=== PATIENT | male | born 1985 | race Caucasian/White ===

== ENCOUNTER 2016-12-11 08:10 | Emergency (ER) | payer OTHER, BC ==
[~2016-12-11] VITALS: Ht 180.3 cm; Wt 81.6 kg
[2016-12-11 08:15] VITALS: BP 116/72
[2016-12-11] MEDS ORDERED: KETOROLAC 60 MG/2 ML VIAL (J1885) IM ONE (09:00)
--- NOTE | 2016-12-11 09:17 | REP ---
Clinical: Trauma . Technique: AP, lateral, bilateral oblique, and coned-down views. Findings: Alignment and lordosis is maintained. The vertebral bodies including transverse process and spinous processes are intact and normal. There is no evidence for acute fracture / compression injury or subluxation. No evidence for spondylolysis or spondylolisthesis. No significant degenerative change is noted. Impression: Normal lumbosacral spine radiograph series. Signed by Rufino Gandhi MD 12/11/2016 09:08 A
[2016-12-11] MEDS ORDERED: IBUP80TA PO (09:21)
[2016-12-11] MEDS ORDERED: ROBA500T PO (09:21)
[2016-12-11] MEDS ORDERED: NORCOTAB PO (09:21)
== END 2016-12-11 09:41 | disposition home or self-care (01) ==
LOC: M ED 08:51
DX: S39.012A Strain of muscle, fascia and tendon of lower back, initial encounter (principal); X58.XXXA Exposure to other specified factors, initial encounter; Y92.099 Unspecified place in other non-institutional residence as the place of occurrence of the external cause; Y93.9 Activity, unspecified; Y99.9 Unspecified external cause status; F17.200 Nicotine dependence, unspecified, uncomplicated
CPT/HCPCS: 72110; 96372; 99282; J1885

== ENCOUNTER 2017-07-12 18:35 | Emergency (ER) | payer BC, OTHER ==
[2017-07-12] MEDS ORDERED: PENICILLIN V POTASSIUM 500 MG TAB PO (19:45)
== END 2017-07-12 19:55 | disposition home or self-care (01) ==
LOC: M ED 18:35
DX: J02.9 Acute pharyngitis, unspecified (principal); F17.200 Nicotine dependence, unspecified, uncomplicated
CPT/HCPCS: 99282

== ENCOUNTER 2017-08-01 17:26 | Emergency (ER) | payer BC ==
[2017-08-01] MEDS: AUGMENTIN 875 MG TAB PO (20:07)
== END 2017-08-01 21:57 | disposition home or self-care (01) ==
LOC: M ED 17:26
DX: J02.0 Streptococcal pharyngitis (principal); R05 Cough; F17.210 Nicotine dependence, cigarettes, uncomplicated
CPT/HCPCS: 87880

== ENCOUNTER 2017-12-16 17:53 | Emergency (ER) | payer BC ==
[2017-12-16] MEDS: PENICILLIN V POTASSIUM 500 MG TAB PO (18:24)
[2017-12-16] MEDS: NORCO 5/325MG TABLET (BULK FOR ED) PO (18:24)
== END 2017-12-16 18:27 | disposition home or self-care (01) ==
LOC: M ED 17:53
DX: K04.7 Periapical abscess without sinus (principal); F17.210 Nicotine dependence, cigarettes, uncomplicated
CPT/HCPCS: 99282

== ENCOUNTER 2018-03-25 23:41 | Emergency (ER) | payer BC ==
[2018-03-26] MEDS: IBUPROFEN 600 MG TAB PO (02:11)
[2018-03-26] MEDS: CYCLOBENZAPRINE 10 MG TAB PO (02:12)
== END 2018-03-26 02:27 | disposition home or self-care (01) ==
LOC: M ED 23:41
DX: M54.42 Lumbago with sciatica, left side (principal); M62.830 Muscle spasm of back; F17.210 Nicotine dependence, cigarettes, uncomplicated
CPT/HCPCS: 99283

== ENCOUNTER 2018-11-13 21:22 | Emergency (ER) | payer BC ==
[~2018-11-13] VITALS: Ht 180.3 cm; Wt 84.1 kg
[~2018-11-13 21:22] MED LIST: AUGM875T28 PO; CYCL10TA PO; HYDR-3715 PO; IBUP-1022 PO; IBUP80TA PO; PENI500T OR; PENI500T PO; ROBA500T PO; TYLE500T78 PO
[2018-11-13] MEDS ORDERED: traMADol 50 MG TAB (BULK 4 TAB ED) PO ONE (23:00)
[2018-11-13] MEDS ORDERED: PENICILLIN V POTASSIUM 500 MG TAB PO ONE (23:00)
[2018-11-13] MEDS ORDERED: TRAM50TA2 PO (23:01)
[2018-11-13] MEDS ORDERED: PENI500T PO (23:01)
[2018-11-13 23:12] VITALS: BP 128/64
== END 2018-11-13 23:13 | disposition home or self-care (01) ==
LOC: M ED 21:22
DX: K04.7 Periapical abscess without sinus (principal); K02.9 Dental caries, unspecified; K08.89 Other specified disorders of teeth and supporting structures

== ENCOUNTER → 2018-12-30 | Outpatient (CLI) | payer BC ==
[~2018-12-30] MED LIST changes: +TRAM50TA2 PO
[2018-12-30 07:30] LABS: BASO # 0.1 10^3/uL (0.0-0.2); BASO % 0.7 % (0.0-1.0); EOS # 0.3 10^3/uL (0.0-0.50); EOS % 3.5 % (0.0-3.0); HEMATOCRIT 45.8 % (42.0-52.0); HEMOGLOBIN 15.4 g/dl (13.5-17.5); LYMPH # 2.2 10^3/uL (1.5-4.5); LYMPH % 27.1 % (24.0-44.0); MEAN CORPUSCULAR HEMOGLOBIN 30.6 pg (27.0-33.0); MEAN CORPUSCULAR HGB CONC 33.6 g/dl (32.0-36.5); MEAN CORPUSCULAR VOLUME 91.1 fl (80.0-96.0); MONO # 0.9 10^3/uL (0.0-0.8); MONO % 10.4 % (0.0-5.0); NEUTROPHILS # 4.7 10^3/uL (1.8-7.7); NEUTROPHILS % 57.6 % (36.0-66.0); PLATELET COUNT, AUTOMATED 212 10^3/uL (150-450); RED BLOOD COUNT 5.03 10^6/uL (4.30-6.10); WHITE BLOOD COUNT 8.2 10^3/uL (4.0-10.0)
[2018-12-30 07:36] LABS: AMORPHOUS SEDIMENT SMALL (NEGATIVE); APPEARANCE, URINE HAZY (CLEAR); BACTERIA, URINE AUTO NEGATIVE (NEGATIVE); BILIRUBIN, URINE AUTO NEGATIVE (NEGATIVE); BLOOD, URINE BLOOD NEGATIVE (NEGATIVE); COLOR, URINE YELLOW (YELLOW); GLUCOSE, URINE (UA) AUTO NEGATIVE (NEGATIVE); KETONE, URINE AUTO NEGATIVE (NEGATIVE); LEUKOCYTE ESTERASE, URINE AUTO NEGATIVE (NEGATIVE); NITRITE, URINE AUTO NEGATIVE (NEGATIVE); PROTEIN, URINE AUTO NEGATIVE (NEGATIVE); RBC, URINE AUTO 0 /HPF (0-3); SQUAMOUS EPITHELIAL CELL UR AU 0 /HPF (0-6); UROBILINOGEN, URINE AUTO 0.2 mg/dL (0.0-2.0); WBC, URINE AUTO 0 /HPF (0-3)
[2018-12-30 07:46] LABS: HEMOGLOBIN A1c 5.6 %
[2018-12-30 08:00] LABS: ALBUMIN 3.7 GM/DL (3.2-5.2); ALT/SGPT 46 U/L (12-78); BILIRUBIN,TOTAL 0.2 MG/DL (0.2-1.0); BLOOD UREA NITROGEN 16 MG/DL (7-18); CALCIUM LEVEL 9.1 MG/DL (8.5-10.1); CARBON DIOXIDE LEVEL 33 MEQ/L (21-32); CHLORIDE LEVEL 106 MEQ/L (98-107); CHOLESTEROL LEVEL 152 MG/DL (<200); CHOLESTEROL RISK RATIO 2.923 (<5); CREATININE FOR GFR 1.22 MG/DL (0.70-1.30); FREE T4 0.81 NG/DL (0.76-1.46); GLOMERULAR FILTRATION RATE > 60.0 (>60); GLUCOSE, FASTING 95 MG/DL (70-100); HDL CHOLESTEROL 52 MG/DL (>40); LDL CHOLESTEROL 77 MG/DL (<100); NON-HDL-C 100 MG/DL; POTASSIUM SERUM 3.9 MEQ/L (3.5-5.1); SODIUM LEVEL 143 MEQ/L (136-145); TOTAL PROTEIN 6.5 GM/DL (6.4-8.2); TRIGLYCERIDES LEVEL 114 MG/DL (<150)
[2018-12-30 08:21] LABS: TOTAL 25(OH) VITAMIN D 21.3 NG/ML (30.0-100.0)
[2019-01-01 00:06] LABS: Lyme Disease IgG/IgM Antibodie <0.91 ISR (0.00-0.90); Lyme Disease IgM Ab Quantitati <0.80 index (0.00-0.79)
== END ==
LOC: M LAB 06:45
PROVIDERS: ATTEND Family Medicine
DX: Z13.228 Encounter for screening for other metabolic disorders (principal)

== ENCOUNTER 2019-03-30 18:10 | Emergency (ER) | payer OTHER, BC ==
[~2019-03-30] VITALS: Ht 180.3 cm; Wt 86.6 kg
[2019-03-30] MEDS ORDERED: LEVO50TA5 PO (18:16)
[2019-03-30] MEDS ORDERED: CHAN1PAK13 (18:16)
[2019-03-30] MEDS ORDERED: D3 H10002 PO (18:16)
[2019-03-30] MEDS ORDERED: VITA500045 (18:16)
[2019-03-30] MEDS ORDERED: KETOROLAC 60 MG/2 ML VIAL (J1885) IM ONE (19:30)
[2019-03-30] MEDS ORDERED: ACETAMINOPHEN 325 MG TAB PO ONE (19:30)
[2019-03-30] MEDS ORDERED: KETO10TAB PO (20:39)
[2019-03-30] MEDS ORDERED: CYCL10TA PO (20:39)
[2019-03-30] MEDS ORDERED: CYCLOBENZAPRINE 10 MG TAB PO ONE (20:45)
[2019-03-30] MEDS ORDERED: KETOROLAC TROMETHAMINE 10 MG TAB PO ONE (20:45)
[2019-03-30 20:52] VITALS: BP 120/77
== END 2019-03-30 20:55 | disposition home or self-care (01) ==
LOC: M ED 18:10
DX: S39.012A Strain of muscle, fascia and tendon of lower back, initial encounter (principal); X50.0XXA Overexertion from strenuous movement or load, initial encounter; Y92.59 Other trade areas as the place of occurrence of the external cause; Y99.0 Civilian activity done for income or pay; Y93.89 Activity, other specified; F17.210 Nicotine dependence, cigarettes, uncomplicated; M54.32 Sciatica, left side
CPT/HCPCS: 96372; 99283; J1885

== ENCOUNTER → 2019-06-10 | Outpatient (CLI) | payer BC ==
[~2019-06-10] MED LIST changes: +CHAN1PAK13; +D3 H10002 PO; +KETO10TAB PO; +LEVO50TA5 PO; +VITA500045
[2019-06-10 08:13] LABS: FREE T4 1.07 NG/DL (0.76-1.46); THYROID STIMULATING HORMONE 3.21 uIU/ML (0.358-3.740)
[2019-06-10 08:47] LABS: HEMOGLOBIN A1c 5.5 %
== END ==
LOC: M LAB 07:03
PROVIDERS: ATTEND Family Medicine
DX: R73.03 Prediabetes (principal)

== ENCOUNTER → 2019-07-25 | Outpatient (REF) | payer BC ==
[2019-07-25 11:14] LABS: SEMEN APPEARANCE OPAQUE (OPAQUE); SEMEN VISCOSITY LIQUID (LIQUID); SEMEN VOLUME 1.2 ml (2.0-5.0); SEMEN pH 8.5 (7.0-8.0); SPERM CONCENTRATION 148.8 M/ml (>=15.0); WBC CONCENTRATION <=1 M/ml (<=1 M/ml)
== END ==
LOC: M LAB REF 10:56
PROVIDERS: ATTEND Obstetrics & Gynecology Reproductive Endocrinology
DX: N46.9 Male infertility, unspecified (principal)

== ENCOUNTER → 2020-11-05 | Outpatient (REF) | payer BC ==
[~2020-11-05] MED LIST changes: +CYCL-707 PO; -CYCL10TA PO
[2020-11-05 17:13] LABS: BASO # 0.1 10^3/uL (0.0-0.2); BASO % 0.8 % (0.0-1.0); EOS # 0.2 10^3/uL (0.0-0.5); EOS % 2.1 % (0.0-3.0); HEMATOCRIT 48.8 % (42.0-52.0); HEMOGLOBIN 16.9 g/dl (13.5-17.5); LYMPH # 1.9 10^3/uL (1.5-5.0); LYMPH % 26.1 % (24.0-44.0); MEAN CORPUSCULAR HEMOGLOBIN 30.3 pg (27.0-33.0); MEAN CORPUSCULAR HGB CONC 34.6 g/dl (32.0-36.5); MEAN CORPUSCULAR VOLUME 87.6 fl (80.0-96.0); MONO # 0.8 10^3/uL (0.0-0.8); MONO % 10.7 % (2.0-8.0); NEUTROPHILS # 4.3 10^3/uL (1.5-8.5); NEUTROPHILS % 59.3 % (36.0-66.0); PLATELET COUNT, AUTOMATED 215 10^3/uL (150-450); RED BLOOD COUNT 5.57 10^6/uL (4.30-6.10); WHITE BLOOD COUNT 7.3 10^3/uL (4.0-10.0)
[2020-11-05 17:47] LABS: ALBUMIN 4.5 GM/DL (3.2-5.2); ALT/SGPT 145 U/L (12-78); BILIRUBIN,TOTAL 0.6 MG/DL (0.2-1.0); BLOOD UREA NITROGEN 17 MG/DL (7-18); CALCIUM LEVEL 9.1 MG/DL (8.5-10.1); CARBON DIOXIDE LEVEL 27 MEQ/L (21-32); CHLORIDE LEVEL 104 MEQ/L (98-107); CHOLESTEROL LEVEL 189 MG/DL (<200); CHOLESTEROL RISK RATIO 3.857 (<5); CREATININE FOR GFR 1.03 MG/DL (0.70-1.30); GLOMERULAR FILTRATION RATE > 60.0 (>60); GLUCOSE, FASTING 103 MG/DL (70-100); HDL CHOLESTEROL 49 MG/DL (>40); LDL CHOLESTEROL 109 MG/DL (<100); NON-HDL-C 140 MG/DL; POTASSIUM SERUM 4.5 MEQ/L (3.5-5.1); SODIUM LEVEL 139 MEQ/L (136-145); TOTAL PROTEIN 7.5 GM/DL (6.4-8.2); TRIGLYCERIDES LEVEL 153 MG/DL (<150)
[2020-11-05 17:48] LABS: TOTAL 25(OH) VITAMIN D 14.8 NG/ML (30.0-100.0)
[2020-11-05 17:49] LABS: THYROID PEROXIDASE ANTIBODY < 28.0 U/ML (<60.0)
[2020-11-05 18:10] LABS: HEMOGLOBIN A1c 5.4 %
[2020-11-05 18:24] LABS: MALB URINE SIEMENS 10.1 MG/L; MAU/CREAT RATIO 4.4 MCG/MG (0.0-30.0)
== END ==
LOC: M LAB REF 16:26
PROVIDERS: ATTEND Pediatrics
DX: E03.9 Hypothyroidism, unspecified (principal); R73.03 Prediabetes; E55.9 Vitamin D deficiency, unspecified

== ENCOUNTER → 2022-09-15 | Outpatient (REF) | payer BC ==
[2022-09-15 18:53] LABS: HEMOGLOBIN A1c 5.8 % (4.0-6.0)
[2022-09-15 19:04] LABS: ALBUMIN 4.2 G/DL (3.2-5.2); ALKALINE PHOSPHATASE 49 U/L (46-116); ALT/SGPT 92 U/L (7.0-40); AST/SGOT 34 U/L (<34); BILIRUBIN,TOTAL 0.7 MG/DL (0.3-1.2); BLOOD UREA NITROGEN 18 MG/DL (9-23); CALCIUM LEVEL 9.2 MG/DL (8.5-10.1); CARBON DIOXIDE LEVEL 30 MMOL/L (20-31); CHLORIDE LEVEL 102 MMOL/L (98-107); CHOLESTEROL LEVEL 171 MG/DL (<200); GLOMERULAR FILTRATION RATE > 60.0 (>60); GLUCOSE, FASTING 85 MG/DL (60-100); LDL CHOLESTEROL 89.4 MG/DL (<100); NON-HDL-C 133 MG/DL; POTASSIUM SERUM 4.1 MMOL/L (3.5-5.1); SODIUM LEVEL 141 MMOL/L (136-145); THYROID STIMULATING HORMONE 2.749 uIU/ML (0.55-4.78); TOTAL PROTEIN 6.9 G/DL (5.7-8.2); TRIGLYCERIDES LEVEL 218 MG/DL (<150)
== END ==
LOC: M LAB REF 17:18
PROVIDERS: ATTEND Pediatrics
DX: E03.9 Hypothyroidism, unspecified (principal); R73.03 Prediabetes

== ENCOUNTER → 2022-10-13 | Outpatient (CLI) | payer BC, SELFPAY | LOC: M WHC 07:24 | PROVIDERS: ATTEND Pediatrics | DX: R74.01 Elevation of levels of liver transaminase levels (principal) ==

== ENCOUNTER → 2022-10-20 | Outpatient (REF) | payer BC ==
[2022-10-20 14:24] LABS: ALBUMIN 4.4 G/DL (3.2-5.2); BILIRUBIN,DIRECT 0.2 MG/DL (<0.4); BILIRUBIN,TOTAL 0.5 MG/DL (0.3-1.2); FERRITIN 107.4 NG/ML (10.5-307.3)
== END ==
LOC: M LAB REF 12:14
PROVIDERS: ATTEND Pediatrics
DX: R74.01 Elevation of levels of liver transaminase levels (principal)

== ENCOUNTER 2022-12-03 02:31 | Emergency (ER) | payer BC ==
[~2022-12-03] VITALS: Ht 177.8 cm; Wt 99.7 kg
[2022-12-03] MEDS ORDERED: BENZ200C70 PO (04:20)
[2022-12-03] MEDS ORDERED: BENZONATATE 100MG CAPSULE PO ONE (04:20)
[2022-12-03 04:28] VITALS: BP 126/78
== END 2022-12-03 04:32 | disposition home or self-care (01) ==
LOC: M ED 02:31
DX: J06.9 Acute upper respiratory infection, unspecified (principal); B34.8 Other viral infections of unspecified site; E03.9 Hypothyroidism, unspecified; F10.10 Alcohol abuse, uncomplicated; Z79.899 Other long term (current) drug therapy; Z79.811 Long term (current) use of aromatase inhibitors

== ENCOUNTER → 2023-09-05 | Outpatient (REF) | payer BC ==
[~2023-09-05] MED LIST changes: +BENZ200C70 PO
[2023-09-05 12:37] LABS: ALBUMIN 4.2 G/DL (3.2-5.2); BILIRUBIN,DIRECT 0.2 MG/DL (<0.4); BILIRUBIN,TOTAL 0.7 MG/DL (0.3-1.2); TOTAL PROTEIN 6.9 G/DL (5.7-8.2)
[2023-09-05 12:40] LABS: THYROID STIMULATING HORMONE 2.428 uIU/ML (0.55-4.78)
[2023-09-05 13:10] LABS: HEMOGLOBIN A1c 5.5 % (4.0-6.0)
== END ==
LOC: M LAB REF 12:06
PROVIDERS: ATTEND Pediatrics
DX: E03.9 Hypothyroidism, unspecified (principal); K76.0 Fatty (change of) liver, not elsewhere classified; R73.03 Prediabetes

== ENCOUNTER → 2024-02-29 | Outpatient (REF) | payer BC | LOC: M SMT 13:09 | PROVIDERS: ATTEND Urology | DX: Z30.2 Encounter for sterilization (principal); Z98.52 Vasectomy status ==

== ENCOUNTER → 2024-05-06 | Outpatient (REF) | payer BC ==
[2024-05-06 14:19] LABS: ALBUMIN 4.4 G/DL (3.2-5.2); BILIRUBIN,DIRECT 0.2 MG/DL (<0.4); BILIRUBIN,TOTAL 0.6 MG/DL (0.3-1.2); TOTAL PROTEIN 7.5 G/DL (5.7-8.2)
[2024-05-06 14:20] LABS: THYROID STIMULATING HORMONE 3.225 uIU/ML (0.55-4.78)
[2024-05-06 14:33] LABS: HEMOGLOBIN A1c 5.6 % (4.0-6.0)
== END ==
LOC: M LAB REF 13:30
PROVIDERS: ATTEND Pediatrics
DX: R73.03 Prediabetes (principal); E03.9 Hypothyroidism, unspecified; K76.0 Fatty (change of) liver, not elsewhere classified

== ENCOUNTER → 2024-09-19 | Outpatient (CLI) | payer BC | LOC: M RAD 09:34 | PROVIDERS: ATTEND Internal Medicine Gastroenterology | DX: K76.0 Fatty (change of) liver, not elsewhere classified (principal) ==

== ENCOUNTER → 2024-10-02 | Outpatient (CLI) | payer BC ==
[2024-10-02 08:00] LABS: ALBUMIN 4.3 G/DL (3.2-5.2); BILIRUBIN,DIRECT 0.3 MG/DL (<0.4); TOTAL PROTEIN 7.3 G/DL (5.7-8.2)
[2024-10-02 08:02] LABS: THYROID STIMULATING HORMONE 2.64 uIU/ML (0.55-4.78); TOTAL 25(OH) VITAMIN D 20.8 NG/ML (20.0-100.0)
[2024-10-02 08:55] LABS: HEMOGLOBIN A1c 5.5 % (4.0-6.0)
== END ==
LOC: M LAB 07:00
PROVIDERS: ATTEND Pediatrics
DX: E03.9 Hypothyroidism, unspecified (principal)

== ENCOUNTER → 2025-02-23 | Outpatient (REF) | payer BC ==
[2025-02-23 13:00] LABS: CHOLESTEROL LEVEL 175.0 MG/DL (<200); CHOLESTEROL RISK RATIO 3.93 (<5); LDL CHOLESTEROL 106.5 MG/DL (<100); NON-HDL-C 130.5 MG/DL; TRIGLYCERIDES LEVEL 120.0 MG/DL (<150)
== END ==
LOC: M LAB REF 11:41
PROVIDERS: ATTEND Pediatrics
DX: E03.9 Hypothyroidism, unspecified (principal); K76.0 Fatty (change of) liver, not elsewhere classified

== ENCOUNTER 2025-04-04 20:49 | Emergency (ER) | payer BC ==
[~2025-04-04] VITALS: Ht 177.8 cm; Wt 103.4 kg
[~2025-04-04 20:49] MED LIST changes: -IBUP-1022 PO; +IBUP600T42 PO
[2025-04-04] MEDS: KETOROLAC 30 MG/ML 1 ML VIAL IM ONE (21:29)
[2025-04-04] MEDS: PREGABALIN 100 MG CAP PO ONE (23:14)
[2025-04-04] MEDS ORDERED: MEDR4PAK PO (23:53)
[2025-04-04] MEDS ORDERED: METH-1165 PO (23:53)
[2025-04-05 00:06] VITALS: BP 138/86; TEMP 99.5; O2SAT 95
== END 2025-04-05 00:11 | disposition home or self-care (01) ==
LOC: M ED 20:49
DX: M54.31 Sciatica, right side (principal); K76.0 Fatty (change of) liver, not elsewhere classified; Z79.899 Other long term (current) drug therapy
CPT/HCPCS: 96372; 99283; J1100; J1885